=== PATIENT | male | born 1985 | race African-American/Black ===

== ENCOUNTER 2017-12-26 01:12 | Emergency (ER) | payer BC, MEDICAID ==
[~2017-12-26] VITALS: Ht 188 cm; Wt 127.2 kg
[2017-12-26 01:30] VITALS: BP 147/74
== END 2017-12-26 07:20 | disposition left against medical advice (07) ==
LOC: ER 01:12
DX: M79.672 Pain in left foot (principal); Z53.21 Procedure and treatment not carried out due to patient leaving prior to being seen by health care provider

== ENCOUNTER 2024-03-02 21:45 | Emergency (ER) | payer BC, MEDICAID ==
[~2024-03-02] VITALS: Ht 188 cm; Wt 112.0 kg
[2024-03-02 21:57] VITALS: BP 120/73; PULSE 73; RESP 18; O2SAT 99
[2024-03-03] MEDS ORDERED: IBUP-1456 PO (00:09)
[2024-03-03] MEDS: KETOROLAC TROMETH 60MG/2ML VIAL IM ONE (00:22)
== END 2024-03-03 00:21 | disposition home or self-care (01) ==
LOC: EDBD 21:45 → ER 21:45
DX: S86.012A Strain of left Achilles tendon, initial encounter (principal); J45.909 Unspecified asthma, uncomplicated; Z79.1 Long term (current) use of non-steroidal anti-inflammatories (NSAID); X58.XXXA Exposure to other specified factors, initial encounter; Y93.67 Activity, basketball; Y92.214 College as the place of occurrence of the external cause; Y99.8 Other external cause status
CPT/HCPCS: 73610; 99283; J1885